=== PATIENT | male | born 1970 | race Caucasian/White ===

== ENCOUNTER 2020-01-31 16:43 | Emergency (ER) | payer OTHER ==
[~2020-01-31] VITALS: Ht 175.3 cm; Wt 74.4 kg
[2020-01-31 16:49] VITALS: BP 156/101
[2020-01-31] MEDS ORDERED: NACL 0.9% 1,000 ML IV ONE (17:20)
[2020-01-31] MEDS ORDERED: metroNIDAZOLE 250 MG TAB PO STA (17:40)
[2020-01-31] MEDS ORDERED: CIPROFLOXACIN 250 MG TAB PO STA (17:40)
[2020-01-31 17:42] LABS: BASOPHILS # (AUTO) 0.1 K/uL (0.00-0.22); BASOPHILS % (AUTO) 0.7 % (0.0-2.0); EOSINOPHILS # (AUTO) 0.4 K/uL (0-0.4); EOSINOPHILS % (AUTO) 4.8 % (0.0-4.0); HEMATOCRIT 45.5 % (36-52); HEMOGLOBIN 15.4 g/dL (12.0-18.0); LYMPHOCYTES % (AUTO) 36.2 % (20.5-51.1); MEAN CORPUSCULAR HEMOGLOBIN 30 pg (27-31); MEAN CORPUSCULAR HGB CONC 34 g/dL (33-37); MEAN CORPUSCULAR VOLUME 88.6 fL (80-94); MONOCYTES # (AUTO) 0.6 K/uL (0.8-1.0); MONOCYTES % (AUTO) 7.7 % (1.7-9.3); NEUTROPHILS # (AUTO) 4.2 K/uL (1.8-7.7); NEUTROPHILS % (AUTO) 50.6 % (42.2-75.2); PLATELET COUNT (AUTO) 331 K/uL (140-450); RED BLOOD CELL COUNT(AUTO) 5.14 MIL/uL (4.20-6.10); RED CELL DISTRIBUTION WIDTH 13.2 % (11.6-13.7); WHITE BLOOD COUNT (AUTO) 8.2 K/uL (4.8-10.8)
[2020-01-31 18:03] LABS: ALBUMIN 4.2 g/dL (3.4-5.0); ANION GAP 12.5 (8-16); CARBON DIOXIDE 27.1 mmol/L (21-32); CREATININE 1.1 mg/dL (0.6-1.3); POTASSIUM 3.6 mmol/L (3.5-5.1); TOTAL BILIRUBIN 0.4 mg/dL (0.0-1.0)
--- NOTE | 2020-01-31 19:25 | NUR ---
REPORT GIVEN TO GLENN MEDINA, TRANSFER OF CARE AT THIS TIME
[2020-01-31 19:30] VITALS: BP 156/101
--- NOTE | 2020-01-31 19:30 | NUR ---
Pt c/o abd pain with diarrhea x 10 days. +NAUSEA, + VOMITTING, +DIARRHEA. GENERALIZED ABD PAIN. VSS. A&O X4. STEADY GAIT. ACTIVE BS, ABD IS SOFT, ROUND AND TENDERNESS TO TOUCH ON LLQ. medhx: HTN NKDA.
--- NOTE | 2020-01-31 19:33 | NUR ---
Patient discharged with v/s stable. Written and verbal after care instructions given and explained. Patient alert, oriented and verbalized understanding of instructions. Ambulatory with steady gait. All questions addressed prior to discharge. ID band removed. Patient advised to follow up with PMD. Rx of CIPRO AND FLAGYL given. Patient educated on indication of medication including possible reaction and side effects. Opportunity to ask questions provided and answered.
== END 2020-01-31 19:33 | disposition home or self-care (01) ==
LOC: MED 16:43
DX: K52.9 Noninfective gastroenteritis and colitis, unspecified (principal); K57.92 Diverticulitis of intestine, part unspecified, without perforation or abscess without bleeding; I10 Essential (primary) hypertension
CPT/HCPCS: 36415; 80053; 82150; 83690; 85025; 96360; 99283; J7030; 96361

== ENCOUNTER 2020-02-14 15:11 | Emergency (ER) | payer OTHER ==
[~2020-02-14] VITALS: Ht 170.2 cm; Wt 104.3 kg
[2020-02-14 15:12] VITALS: BP 124/93
--- NOTE | 2020-02-14 15:23 | NUR ---
WAIT AT LOBBY
--- NOTE | 2020-02-14 15:35 | NUR ---
PT AMBULATED TO BED 03
--- NOTE | 2020-02-14 15:46 | NUR ---
PT C/O ABDOMINAL PAIN X 1 YEAR, DIARRHEA X 3 MONTH. PT WAS DX : COLITIS 2 WEEKS AGO & FINISHED CIPRO & METRONIDAZOLE 2 DAYS AGO. SKIN IS PINK/WARM/DRY; AAOX4 WITH EVEN AND STEADY GAIT; LUNGS CLEAR BL; HR EVEN AND REGULAR; PT DENIES ANY FEVER, CP, SOB, OR COUGH AT THIS TIME; PATIENT STATES PAIN OF 7/10 AT THIS TIME; VSS; PATIENT POSITIONED FOR COMFORT; HOB ELEVATED; BEDRAILS UP X1; BED DOWN. ER MD MADE AWARE OF PT STATUS.
--- NOTE | 2020-02-14 16:00 | NUR ---
Patient discharged with v/s stable. Written and verbal after care instructions given and explained. Patient alert, oriented and verbalized understanding of instructions. Ambulatory with steady gait. All questions addressed prior to discharge. ID band removed. Patient advised to follow up with PMD. Rx of TYLENOL EXTRA STRENGTH, IMMODIUM, CIPRO AND FAGYL given. Patient educated on indication of medication including possible reaction and side effects. Opportunity to ask questions provided and answered.
[2020-02-14 16:08] VITALS: BP 124/93
== END 2020-02-14 16:00 | disposition home or self-care (01) ==
LOC: MED 15:11
DX: R10.9 Unspecified abdominal pain (principal); R19.7 Diarrhea, unspecified; I10 Essential (primary) hypertension
CPT/HCPCS: 99282; 99283

== ENCOUNTER 2020-02-19 19:13 | Emergency (ER) | payer OTHER ==
[~2020-02-19] VITALS: Ht 170.2 cm; Wt 81.6 kg
[2020-02-19 19:38] VITALS: BP 143/88
[2020-02-19] MEDS ORDERED: KETOROLAC 15 MG/ML VIAL IVP ONE (20:15)
[2020-02-19] MEDS ORDERED: NACL 0.9% 1,000 ML IV ONE (20:15)
[2020-02-19 20:35] LABS: BASOPHILS # (AUTO) 0.1 K/uL (0.00-0.22); BASOPHILS % (AUTO) 0.8 % (0.0-2.0); EOSINOPHILS # (AUTO) 0.4 K/uL (0-0.4); EOSINOPHILS % (AUTO) 4.1 % (0.0-4.0); HEMATOCRIT 46.1 % (36-52); HEMOGLOBIN 15.9 g/dL (12.0-18.0); LYMPHOCYTES % (AUTO) 32.6 % (20.5-51.1); MEAN CORPUSCULAR HEMOGLOBIN 31 pg (27-31); MEAN CORPUSCULAR HGB CONC 35 g/dL (33-37); MEAN CORPUSCULAR VOLUME 89.1 fL (80-94); MONOCYTES # (AUTO) 0.8 K/uL (0.8-1.0); MONOCYTES % (AUTO) 8.5 % (1.7-9.3); NEUTROPHILS # (AUTO) 4.9 K/uL (1.8-7.7); PLATELET COUNT (AUTO) 320 K/uL (140-450); RED BLOOD CELL COUNT(AUTO) 5.18 MIL/uL (4.20-6.10); WHITE BLOOD COUNT (AUTO) 9.1 K/uL (4.8-10.8)
[2020-02-19 20:42] LABS: PROTHROMBIN TIME 12.1 secs (10.8-13.4)
[2020-02-19 20:44] LABS: ANION GAP 11.1 (8-16); CARBON DIOXIDE 29.7 mmol/L (21-32); POTASSIUM 3.8 mmol/L (3.5-5.1); TOTAL BILIRUBIN 0.4 mg/dL (0.0-1.0)
[2020-02-19 22:08] VITALS: BP 143/88
== END 2020-02-19 22:05 | disposition home or self-care (01) ==
LOC: MED 19:13
DX: K62.5 Hemorrhage of anus and rectum (principal); K59.00 Constipation, unspecified; R10.84 Generalized abdominal pain
CPT/HCPCS: 36415; 74176; 80053; 85025; 85610; 85730; 96361; 96374; 99284; J1885; J7030

== ENCOUNTER 2020-04-11 08:25 | Emergency (ER) | payer OTHER, SELFPAY ==
[~2020-04-11] VITALS: Ht 170.2 cm; Wt 104.3 kg
[2020-04-11 08:41] VITALS: BP 146/106
--- NOTE | 2020-04-11 08:44 | NUR ---
C/O COUGH X 2 WEEKS. COVID TESTED 2 WEEKS AGO: NEGATIVE. O2 SAT 98% AT THIS TIME. PMH: PRE DM, HTN,HLD
--- NOTE | 2020-04-11 10:08 | NUR ---
COVID SWAB COLLECTED
--- NOTE | 2020-04-11 10:09 | NUR ---
Patient discharged with v/s stable. Written and verbal after care instructions given and explained. Patient verbalized understanding. Ambulatory with steady gait. All questions addressed prior to discharge. Advised to follow up with PMD.
[2020-04-11 10:10] VITALS: BP 146/106
== END 2020-04-11 10:09 | disposition home or self-care (01) ==
LOC: MED 08:25
DX: R05 Cough (principal); Z20.828 Contact with and (suspected) exposure to other viral communicable diseases; I10 Essential (primary) hypertension
CPT/HCPCS: 99283; U0003